=== PATIENT | female | born 1955 | race Caucasian/White ===

== ENCOUNTER 2025-05-25 23:52 | Emergency (ER) | payer MEDICARE, OTHER ==
[~2025-05-25] VITALS: Ht 157.5 cm; Wt 85.7 kg
[~2025-05-25 23:52] MED LIST: ASPI-605 PO; BISA-79 PO; CALC-343 PO; CLON0.1T PO; FURO40TA5 PO; LORA0.5T PO; LOSA1TAB39 PO; MELO-107 PO; OMEP20TA5 PO; RANI300C PO; SENNA; TRAM50TA2 PO
[2025-05-26 00:27] LABS: PLATELET COUNT (AUTO) 159 K/uL (150-450); RED BLOOD CELL COUNT(AUTO) 3.96 MIL/uL (4.0-5.2); RED CELL DISTRIBUTION WIDTH 13.9 % (11.5-15.0); WHITE BLOOD COUNT (AUTO) 6.7 K/uL (4.3-11.0)
[2025-05-26 00:38] LABS: CALCIUM, SERUM 9.2 mg/dL (8.5-10.1); CREATININE 1.0 mg/dL (0.6-1.3); SODIUM SERUM 134.0 mmol/L (136-145); UREA NITROGEN, BLOOD 13.0 mg/dL (7-18)
[2025-05-26 00:47] LABS: LACTIC ACID 1.5 mmol/L (0.4-2.0)
[2025-05-26] MEDS ORDERED: ACETAMINOPHEN ES 500 MG TABLET ONE (00:47)
[2025-05-26] MEDS: ACETAMINOPHEN ES 500 MG TABLET PO ONE (00:54)
[2025-05-26 02:33] LABS: APPEARANCE,URINE CLOUDY (CLEAR); BLOOD, URINE NEGATIVE Ery/uL (NEGATIVE); LEUKOCYTE ESTERASE ,URINE 1+ (NEGATIVE); NITRITE, URINE NEGATIVE (NEGATIVE); UGLUCOSE NEGATIVE (NEGATIVE)
[2025-05-26 02:36] LABS: ADD URINE CULTURE YES; SQUAMOUS EPITHELIAL CELL,UR Rare /HPF (None Seen)
[2025-05-26] MEDS ORDERED: NITR100C6 PO (02:45)
[2025-05-26 03:01] VITALS: BP 142/63; TEMP 208.9; O2SAT 97
== END 2025-05-26 03:01 | disposition home or self-care (01) ==
LOC: ER 05-26 00:04
DX: N39.0 Urinary tract infection, site not specified (principal); I10 Essential (primary) hypertension; Z79.1 Long term (current) use of non-steroidal anti-inflammatories (NSAID); Z79.82 Long term (current) use of aspirin; Z79.899 Other long term (current) drug therapy; Z90.49 Acquired absence of other specified parts of digestive tract; Z20.822 Contact with and (suspected) exposure to COVID-19
CPT/HCPCS: 36415; 71045-TC; 80048-TC; 81001; 83605-TC; 85025-TC; 87040-TC; 87086-TC; 87186-TC